=== PATIENT | female | born 1950 | race Caucasian/White ===

== ENCOUNTER 2017-08-31 07:46 | Day surgery (SDC) | payer MEDICARE ==
[2017-08-31] VITALS (12 sets, daily range): BP systolic 118–165; BP diastolic 72–90
[~2017-08-31] VITALS: Ht 157.5 cm; Wt 46.7 kg
[~2017-08-31 07:46] MED LIST: CALC600T14 PO; CHOL10002 PO; NIA500ERT PO; [UNRECOGNIZED DRUG - OTHER] PO; ceFAZolin 2gm in dextrose, iso 100 ML IV ONE; famotidine 20mg tablet PO ONE; ringers solution, lacted 1,000 ML IV SCH
[2017-08-31] MEDS ORDERED: LIDOcaine 1% (10mg/ml) 2ml vial ONE (08:18)
[2017-08-31 08:24] LABS: BASOPHILS % (AUTO) 0.7 % (0-1); EOSINOPHILS # (AUTO) 0.1 X10'3 (0-0.9); EOSINOPHILS % (AUTO) 1.3 % (0-6); LYMPHOCYTES % (AUTO) 24.6 % (21-51); MEAN CORPUSCULAR HEMOGLOBIN 29.1 PG (27.0-31.0); MONOCYTES # (AUTO) 0.3 X10'3 (0-0.9); MONOCYTES % (AUTO) 8.1 % (2-12); NEUTROPHILS # (AUTO) 2.8 X10'3 (1.8-7.7); NEUTROPHILS % (AUTO) 65.3 % (42-75); PRE OP HEMATOCRIT 43.7 % (35.0-45.0); PRE OP HEMOGLOBIN 14.5 g/dL (12.0-16.0); PRE OP PLATELET COUNT 247 X10'3 (140-440); RED BLOOD COUNT 4.97 X10'6 (4.20-5.60); RED CELL DISTRIBUTION WIDTH 13.5 % (11.5-14.5)
[2017-08-31 08:37] LABS: CLARITY,URINE Clear (Clear); COLOR,URINE Yellow (Yellow); GLUCOSE, URINE Negative (Neg); KETONES,URINE Negative (Neg); LEUKOCYTE ESTERASE ,URINE Small (Neg); NITRITES, URINE Negative (Neg); OCCULT BLOOD,URINE Negative (Neg); PROTEIN,URINE Negative (Neg); UROBILINOGEN,URINE 0.2 E.U/dL (0.2-1.0)
[2017-08-31 08:39] LABS: ALBUMIN 3.9 G/DL (3.4-5.0); ALKALINE PHOSPHATASE 76 IU/L (46-116); BLOOD UREA NITROGEN 13 MG/DL (7-18); BUN/CREATININE RATIO 13.5 (6.6-38.0); CALCIUM 9.1 MG/DL (8.5-10.1); CHLORIDE 101 MMOL/L (99-107); CREATININE 0.96 MG/DL (0.40-0.90); PRE OP ALT 19 U/L (30-65); PRE OP ANION GAP 11 (8-16); PRE OP AST 26 U/L (10-37); PRE OP BILIRUB, TOTAL 0.5 MG/DL (0.0-1.0); PRE OP GLUCOSE 88 MG/DL (70-104); PRE OP POTASSIUM 3.8 MMOL/L (3.4-5.1); PRE OP SODIUM 139 MMOL/L (135-145); TOTAL CARBON DIOXIDE 27.2 MMOL/L (24-32); TOTAL PROTEIN 7.8 G/DL (6.4-8.2); eGFR 58 ML/MIN
[2017-08-31 08:59] LABS: UA COLLECTION TYPE CLN CATCH MIDSTREAM
[2017-08-31] MEDS ORDERED: ROPIVAcaine 0.5% (5mg/ml) 30ml vial ONE (09:20)
[2017-08-31 09:33] LABS: BACTERIA,URINE FEW /HPF (Neg); RBC,URINE NONE SEEN /HPF (0-2); SQUAMOUS EPITHELIAL CELL,UR FEW /LPF (FEW); WBC,URINE 0-4 /HPF (0-4)
[2017-08-31] MEDS ORDERED: sevoflurane 250ml liquid IH ONE (10:25)
[2017-08-31] MEDS ORDERED: propofol inj 20 ML IV ONE (10:28)
[2017-08-31] MEDS ORDERED: fentaNYL/PF 50MCG/1 ML 2ML syringe ONE (10:28)
[2017-08-31] MEDS ORDERED: midazolam 2 mg/2 ml injection ONE (10:28)
[2017-08-31] MEDS ORDERED: LIDOcaine 2% (20mg/ml) 5ml vial ONE (10:29)
[2017-08-31] MEDS ORDERED: ceFAZolin 1000mg inj ONE (10:41)
[2017-08-31] MEDS ORDERED: ringers solution, lacted 1,000 ML IV SCH (12:32)
[2017-08-31] MEDS ORDERED: proCHLORperazine 10 MG/2 ml inj IV PRN (12:35)
[2017-08-31] MEDS ORDERED: meperidine/PF 25mg/ml syringe IV PRN (12:35)
[2017-08-31] MEDS ORDERED: ondansetron/PF 4mg/2ml inj IV PRN (12:35)
[2017-08-31] MEDS ORDERED: morphine 4 MG/ML inj SYRINge IV PRN (12:35)
== END 2017-08-31 13:20 | disposition home or self-care (01) ==
LOC: PAS 07:46
PROVIDERS: ATTEND Surgery
DX: K40.20 Bilateral inguinal hernia, without obstruction or gangrene, not specified as recurrent (principal); I10 Essential (primary) hypertension; Z98.51 Tubal ligation status; Z98.41 Cataract extraction status, right eye; Z90.710 Acquired absence of both cervix and uterus; Z90.49 Acquired absence of other specified parts of digestive tract; Z90.89 Acquired absence of other organs; Z98.890 Other specified postprocedural states; Z79.899 Other long term (current) drug therapy
CPT/HCPCS: 36415; 49505; 80053; 81001; 85025; 87088; 93005; A6449; C1781; J0690; J2001; J2175; J2250; J2704; J2795; J3010; J3490; J7120; 88302; A7000